=== PATIENT | female | born 1980 | race Caucasian/White ===

== ENCOUNTER 2019-10-09 19:58 | Inpatient (IN) ==
[2019-10-09] MEDS ORDERED: LACTATED RINGER'S 1,000 ML IV PRN (20:39)
[2019-10-09] MEDS ORDERED: CEFAZOLIN 2000MG 2,000 MG/15 ML SYR IV STA (20:39)
[2019-10-09] MEDS ORDERED: CEFAZOLIN 1000MG 1,000 MG/7.5 ML SYR IV PRN (20:39)
--- NOTE | 2019-10-09 20:44 | History & Physical Report ---
Date of Service October 09, 2019 Assessment & Plan (1) Normal labor: IUP in labor at 40+ weeks planning unmedicated anticipate vaginal delivery Present on Admission?: Yes History of Present Illness Primary Care Provider: NO PCP 39 yo white female EDC 10/03/19 presents at 40+ weeks in active labor. No SPROM.Preganncy complicated by AMA. GBS positive but can take cephalosporins. Blood type- A positive. Growth scan at 32 weeks was 96 % tile.for EFW & AC. Allergies Allergy/AdvReac Type Severity Reaction Status Date / Time orange Allergy Severe HIVES Verified 10/06/19 10:34 gluten Allergy Verified 10/06/19 10:34 Penicillins Allergy Verified 10/06/19 10:34 terfenadine Allergy Verified 10/06/19 10:34 fexofenadine AdvReac Intermediate her Verified 10/06/19 10:34 reactions slow down salmeterol AdvReac Mild tachycardia Verified 10/06/19 10:34 theophylline AdvReac skin Verified 10/06/19 10:34 hypersensitivity Home Medications Home Medications Medication Instructions Recorded Confirmed Type acetone (urine) test #25 ea 06/23/19 10/06/19 History prenat.vits,andrew,itx-mhgr-[id number] PO 09/26/19 10/06/19 History Patient History Medical History (Updated 10/09/19 @ 20:48 by Tonie Blank MD, FACOG) Antepartum complication of Carrier of group B Streptococcus History of asthma History of chicken pox History of pertussis Surgical History (Updated 04/22/19 @ 13:46 by Imani Gutierrez) S/P wisdom tooth extraction Family History (Updated 04/22/19 @ 13:49 by Imani Gutierrez) Grandmother (Paternal) Diabetes Mother Breast cancer Osteoporosis Thrombocytopenia Oral cancer Daughter Patent ductus arteriosus Other Heart disease Social History Preferred Language: Occitan Communication Ability: Effective Mri Special Procedures Technologist Required: No Beliefs That Will Affect Care: None marital status: Current Living Situation: Spouse and Family Current Living Situation Comment: and 2 daughters Other Information That Helps Us Care for You: No Feels Safe at Home: Yes Safety Concerns: Feels Safe At This Time Smoking Status: Never smoker Do You Dip or Chew Tobacco: No ; Second Hand Exposure: No ; Tobacco Cessation Education Requested by Patient: No Hx Alcohol Use: No Hx Substance Use: No Review of Systems All systems reviewed & are unremarkable except as noted in HPI & below Physical Exam Constitutional: WD/WN, vitals as above Respiratory: normal respiratory effort, lungs clear to auscultation Cardiovascular: RRR, no murmur, no edema Gastrointestinal (Abdomen): normal bowel sounds, soft, nontender, no hepatosplenomegaly Psychiatric: A+Ox3, euthymic affect Genitourinary: OB Exam Abdomen: + vertex, + estimated weight (8-9 pounds) and + regular contractions (Q 3-4 minutes) Manual OB Exam: + cervical dilation 6 cm, + cervical effacement 90%, + station -1 and + amniotic fluid (intact) OB Exam Monitor Tracing: + external FHT monitor used, + external uterine monitor used, + category I and + normal FHT variability Results & Data Vital Signs (Past 12 Hours) Vital Signs Temp Pulse Resp BP 10/09/19 20:16 97.5 F L 109 H 18 115/61 Code Status & VTE Plan VTE Prophylaxis Plan VTE Prophylaxis will be ordered: No
[2019-10-09 21:08] LABS: Hematocrit (blood only) 34.3 % (37-47); Hemoglobin 10.9 g/dL (12.0-16.0); Mean Corpuscular Hemoglobin 25.6 pg (25-34); Mean Corpuscular Volume 80.5 fL (80-100); Mean Platelet Volume 10.9 fL (7.4-10.4); Platelet Count 156 K/uL (130-400); RDW Coefficient of Variation 15.2 % (11.5-14.5); RDW Standard Deviation 44.1 fL (36.4-46.3); Red Blood Count 4.26 M/uL (4.2-5.4); White Blood Count 7.45 K/uL (4.8-10.8)
[2019-10-09 21:11] LABS: Mean Corpuscular Hgb Conc 31.8 g/dL (32-36)
[2019-10-09] MEDS: OXYTOCIN 30 UNITS/500 ML BAG IV PRN ×2 (23:04→23:43)
[2019-10-09] MEDS ORDERED: OXYCODONE/ACETAMINOPHEN 5mg/325mg TAB PO PRN (23:14)
[2019-10-09] MEDS ORDERED: SUPERCREAM 0.870% 15 GM JAR EXT PRN (23:14)
[2019-10-09] MEDS ORDERED: OXYTOCIN 30 UNITS/500 ML BAG IV PRN (23:14)
[2019-10-09] MEDS ORDERED: HYDROCORTISONE ACETATE 25 MG SUPP PR PRN (23:14)
[2019-10-09] MEDS ORDERED: BENZOCAINE 20% AER SPR 82.5 GM CAN EXT PRN (23:14)
[2019-10-09] MEDS ORDERED: ACETAMINOPHEN 325 MG TAB PO PRN (23:14)
[2019-10-09] MEDS ORDERED: bisacodyL 10 MG SUPP PR PRN (23:14)
[2019-10-09] MEDS ORDERED: DIPHTHERIA/TETANUS/PERTUSSIS 0.5 ML SYR/VIAL IM ONE (23:14)
--- NOTE | 2019-10-10 00:56 | Delivery Summary ---
DATE OF OPERATION: 10/09/2019 The patient is a 39-year-old white female 3, para 2-0-0-2, EDC of 10/03/2019 who presented at 40+ weeks in active labor. Membranes ruptured spontaneously during the course of her labor. She progressed to full dilation. She pushed effectively over intact perineum for delivery of a viable female . There was a tight nuchal cord upon delivery of the head. This was cut and clamped prior to delivering the rest of the infant, which was done easily. The was then placed on the mother's abdomen for further attention and drying. There was spontaneous crying and the was moving all 4 limbs. After cord blood was obtained, the placenta was expressed intact with a 3-vessel cord. bleeding was controlled with dilute Pitocin. Perineum was intact except for a very superficial abrasion on the left labia minora. Estimated blood loss was 400 mL. I attest to the content of the Intraoperative Record and any orders documented therein. Any exception s are noted below.
[2019-10-10] MEDS: IBUPROFEN 600 MG TAB PO PRN (01:51)
[2019-10-10 06:20] LABS: Hematocrit (blood only) 30.4 % (37-47); Hemoglobin 9.6 g/dL (12.0-16.0); Mean Corpuscular Hemoglobin 25.4 pg (25-34); Mean Corpuscular Hgb Conc 31.6 g/dL (32-36); Mean Corpuscular Volume 80.4 fL (80-100); Mean Platelet Volume 10.6 fL (7.4-10.4); Platelet Count 144 K/uL (130-400); RDW Coefficient of Variation 15.2 % (11.5-14.5); RDW Standard Deviation 44.6 fL (36.4-46.3); Red Blood Count 3.78 M/uL (4.2-5.4)
--- NOTE | 2019-10-10 06:27 | Obstetrical Progress Note ---
Date of Service <Lilliam Evans DO - Last Filed: 10/10/19 07:02> October 10, 2019 Assessment & Plan <Lilliam Evans DO - Last Filed: 10/10/19 07:02> (1) Encounter for care and examination after delivery: 39 yo F PPD #1 following vaginal delivery at 40w3d, doing well and without complaints this morning. - PPD #1. - Feels well, ambulating well, voiding well. - Will continue routine care. - Following d/c will have f/u in 6 weeks. - GBS+, received Ancef this admission. Subjective <Lilliam Evans DO - Last Filed: 10/10/19 07:02> Smiley is a 39 yo female ; PPD # 1 following vaginal delivery at 40.3weeks; doing well this AM; no abdominal cramping/pain; voiding well; tolerating meals overnight, able to ambulate some within the room. Review of Systems Constitutional: denies fever, chills, sweats, headache Respiratory: denies SOB, difficulty breathing Cardiac: denies CP, chest palpitations, chest pressure Breast: denies breast pain : denies dysuria Physical Exam <DO Rosa Moore Last Filed: 10/10/19 07:02> General: patient is alert and oriented, in NAD Cardiac: +S1/S2, no murmurs rubs or gallops Respiratory: lungs CTA b/l, anteriorly and posteriorly, no wheezes rales or rhonchi, no increased work of breathing, symmetric chest rise, no respiratory distress Abdomen: soft, NT, +bowel sounds Uterus: uterine fundus firm, palpable below the level of the umbilicus Lower Extremities: no LE edema or swelling, no deep calf pain, Ralph's sign negative b/l Results & Data <DO Rosa Moore Last Filed: 10/10/19 07:02> Vital Signs (Past 12 Hours) Vital Signs Temp Pulse Pulse Resp BP BP 10/10/19 03:50 36.5 C 78 18 103/64 10/10/19 02:10 36.8 C 86 18 100/59 L 10/10/19 01:12 84 18 111/56 L 10/10/19 00:57 73 110/58 L 10/10/19 00:42 83 18 112/56 L 10/10/19 00:27 83 109/65 10/10/19 00:12 83 18 107/58 L 10/09/19 23:57 83 18 104/59 L 10/09/19 23:45 89 18 108/55 L 10/09/19 23:27 91 H 18 109/66 10/09/19 23:12 98 H 18 106/60 10/09/19 21:26 36.7 C 18 10/09/19 20:16 36.4 C L 109 H 18 115/61 Laboratory Results Laboratory Results - last 24 hr 10/09/19 10/10/19 20:50 05:39 WBC 7.45 10.80 RBC 4.26 3.78 L Hgb 10.9 L 9.6 L Hct 34.3 L 30.4 L MCV 80.5 80.4 MCH 25.6 25.4 MCHC 31.8 L 31.6 L RDW Std Deviation 44.1 44.6 RDW Coeff of [place] 15.2 H 15.2 H Plt Count 156 144 MPV 10.9 H 10.6 H Medications Administered Current Medications Acetaminophen (Tylenol) 650 mg PO Q6H PRN PRN Reason: Pain/MENDOZA/Fever Stop: 11/08/19 23:13 Benzocaine (Dermoplast Pain Relieving [place]) 1 appln EXT PRN PRN PRN Reason: Perineal Discomfort Stop: 11/08/19 23:13 Bisacodyl (Dulcolax) 5 mg PO 1999 [facility] Stop: 10/10/19 20:01 Bisacodyl (Dulcolax) 10 mg [place] DAILY PRN PRN Reason: No BM on 2nd post- day Stop: 11/08/19 23:13 Cocaine HCl (Supercream 0.870%) 1 gm EXT BID PRN PRN Reason: Hemorrhoidal Inflammation Stop: 10/23/19 23:13 Docusate Sodium (Colace) 100 mg PO DAILY@ [facility] Stop: 11/09/19 07:59 Hydrocortisone (Anusol Hc) 25 mg [place] BID PRN PRN Reason: Hemorrhoidal Inflammation Stop: 11/08/19 23:13 Lactated Ringer's (Lr) 1,000 mls @ 125 mls/hr IV .Q8H PRN; Protocol PRN Reason: L&D Protocol Stop: 10/11/19 20:38 Oxytocin (Pitocin) 30 units in 500 mls @ 333.333 mls/hr IV .Q1H30M PRN; Protocol PRN Reason: Bleeding Control Stop: 11/08/19 20:38 Last Titration: 10/10/19 01:00 Dose: Infused Documented by: Oxytocin (Pitocin) 30 units in 500 mls @ 333.333 mls/hr IV .Q1H30M PRN; Protocol PRN Reason: Bleeding Control Stop: 11/08/19 23:13 Ibuprofen (Motrin) 600 mg PO Q4H PRN PRN Reason: Pain/MENDOZA/Cramping/Fever Stop: 11/08/19 23:13 Last Admin: 10/10/19 01:51 Dose: 600 mg Documented by: Oxycodone/Acetaminophen (Percocet 5mg/325mg) 1 tab PO Q4H PRN PRN Reason: Pain not relieved by... Stop: 10/23/19 23:13 Prenat Multivit/[place]/Iron/Folic Ac ( Vitamin) 1 tab PO DAILY@08 DOUG Stop: 11/09/19 07:59 <Tonie Blank MD, FACOG - Last Filed: 10/10/19 07:15> Co-Signing Physician Notes Resident Physician Supervision Note: I interviewed and examined the patient. Discussed with Dr. Marybeth Evans and agree with findings and plan as documented in the note. Any exceptions or clarif ications are listed here: [None] Documented By: Tonie Blank MD, FACOG Resident Activity Tracking <Lilliam Evans DO - Last Filed: 10/10/19 07:02> Resident Involvement: Resident Care Provided Care Provided: OB Delivery
[2019-10-10] MEDS: DOCUSATE SODIUM 100 MG CAP PO SCH ×2 (07:28→20:40)
[2019-10-10] MEDS: PRENATAL VITAMIN 1 TAB PO SCH (07:28)
[2019-10-10] MEDS ORDERED: bisacodyL 5 MG TABEC PO SCH (20:00)
--- NOTE | 2019-10-11 06:17 | Obstetrical Progress Note ---
Date of Service <Lilliam Evans DO - Last Filed: 10/11/19 06:49> October 11, 2019 Assessment & Plan <Lilliam Nathan, DO - Last Filed: 10/11/19 06:49> (1) Encounter for care and examination after delivery: 39 yo F PPD #2 following vaginal delivery at 40w3d, doing well and without complaints this morning. - PPD #2. - Feels well, ambulating well, voiding well. - For discharge today. - Following d/c will have f/u in 6 weeks. - GBS+, received Ancef this admission. - Went over discharge instructions and answered all patient questions. Subjective <Lilliam PerezDO jose - Last Filed: 10/11/19 06:49> Smiley is a 39 yo female ; PPD # 2 following vaginal delivery at 40.3weeks with complicated by AMA and GBS+ treated with Ancef; doing well this A M; no abdominal cramping/pain; voiding well; tolerating meals overnight, able to ambulate some within the room. Review of Systems Constitutional: denies fever, chills, sweats, headache Respiratory: denies SOB, difficulty breathing Cardiac: denies CP, chest palpitations, chest pressure Breast: denies breast pain : denies dysuria Physical Exam <Lilliam Nathan, DO - Last Filed: 10/11/19 06:49> General: patient is alert and oriented, in NAD Cardiac: +S1/S2, no murmurs rubs or gallops Respiratory: lungs CTA b/l, anteriorly and posteriorly, no wheezes rales or rhonchi, no increased work of breathing, symmetric chest rise, no respiratory distress Abdomen: soft, NT, +bowel sounds Uterus: uterine fundus firm, palpable below the level of the umbilicus Lower Extremities: no LE edema or swelling, no deep calf pain, Ralph's sign negative b/l Results & Data <Lilliam Nathan, DO - Last Filed: 10/11/19 06:49> Vital Signs (Past 12 Hours) Vital Signs Temp Pulse Resp BP Pulse Ox 10/11/19 00:25 36.8 C 82 16 94/54 L 10/10/19 19:40 36.9 C 95 H 18 106/65 98 Laboratory Results Laboratory Results - last 24 hr 10/11/19 06:06 Hgb 9.4 L Hct 30.3 L Medications Administered Current Medications Acetaminophen (Tylenol) 650 mg PO Q6H PRN PRN Reason: Pain/MENDOZA/Fever Stop: 11/08/19 23:13 Benzocaine (Dermoplast Pain Relieving [place]) 1 appln EXT PRN PRN PRN Reason: Perineal Discomfort Stop: 11/08/19 23:13 Bisacodyl (Dulcolax) 10 mg [place] DAILY PRN PRN Reason: No BM on 2nd post- day Stop: 11/08/19 23:13 Cocaine HCl (Supercream 0.870%) 1 gm EXT BID PRN PRN Reason: Hemorrhoidal Inflammation Stop: 10/23/19 23:13 Docusate Sodium (Colace) 100 mg PO DAILY@, DOUG Stop: 11/09/19 07:59 Last Admin: 10/10/19 20:40 Dose: 100 mg Documented by: Hydrocortisone (Anusol Hc) 25 mg [place] BID PRN PRN Reason: Hemorrhoidal Inflammation Stop: 11/08/19 23:13 Lactated Ringer's (Lr) 1,000 mls @ 125 mls/hr IV .Q8H PRN; Protocol PRN Reason: L&D Protocol Stop: 10/11/19 20:38 Oxytocin (Pitocin) 30 units in 500 mls @ 333.333 mls/hr IV .Q1H30M PRN; Protocol PRN Reason: Bleeding Control Stop: 11/08/19 20:38 Last Titration: 10/10/19 01:00 Dose: Infused Documented by: Oxytocin (Pitocin) 30 units in 500 mls @ 333.333 mls/hr IV .Q1H30M PRN; Protocol PRN Reason: Bleeding Control Stop: 11/08/19 23:13 Ibuprofen (Motrin) 600 mg PO Q4H PRN PRN Reason: Pain/MENDOZA/Cramping/Fever Stop: 11/08/19 23:13 Last Admin: 10/11/19 06:29 Dose: 600 mg Documented by: Oxycodone/Acetaminophen (Percocet 5mg/325mg) 1 tab PO Q4H PRN PRN Reason: Pain not relieved by... Stop: 10/23/19 23:13 Prenat Multivit/[place]/Iron/Folic Ac ( Vitamin) 1 tab PO DAILY@08 DOUG Stop: 11/09/19 07:59 Last Admin: 10/10/19 07:28 Dose: 1 tab Documented by: <Cintia Ponce DO - Last Filed: 10/11/19 08:28> Co-Signing Physician Notes Resident Physician Supervision Note: I interviewed and examined the patient. Discussed with Dr. Kolb and agree with findings and plan as documented in the note. Any exceptions or clarifications are listed here: PPD#2 doing well. Documented By: Cintia Ponce DO Resident Activity Tracking <Lilliam Evans DO - Last Filed: 10/11/19 06:49> Resident Involvement: Resident Care Provided Care Provided: OB Delivery
[2019-10-11] MEDS: IBUPROFEN 600 MG TAB PO PRN (06:29)
[2019-10-11 06:41] LABS: Hematocrit (blood only) 30.3 % (37-47); Hemoglobin 9.4 g/dL (12.0-16.0)
[2019-10-11] MEDS: DOCUSATE SODIUM 100 MG CAP PO SCH (08:55)
[2019-10-11] MEDS: PRENATAL VITAMIN 1 TAB PO SCH (08:55)
== END 2019-10-11 12:30 | disposition home or self-care (01) | DRG 807 ==
LOC: OPB 19:58 → 4S1 20:00 → 4S2 10-10 01:45